=== PATIENT | female | born 1965 | race Caucasian/White ===

== ENCOUNTER 2022-12-27 16:01 | Emergency (ER) | payer OTHER ==
[2022-12-27] VITALS (7 sets, daily range): BP systolic 159–181; BP diastolic 73–88
[2022-12-27] MEDS ORDERED: VOLTAREN75 MG PO (19:14)
== END 2022-12-27 19:57 | disposition home or self-care (01) | DRG 605 ==
LOC: ED 16:01 → EDBD 16:01 → ED 19:29
DX: S80.02XA Contusion of left knee, initial encounter (principal); I10 Essential (primary) hypertension; F31.9 Bipolar disorder, unspecified; F41.9 Anxiety disorder, unspecified; W01.0XXA Fall on same level from slipping, tripping and stumbling without subsequent striking against object, initial encounter